=== PATIENT | male | born 1995 | race Two or more races ===

== ENCOUNTER 2018-08-19 03:59 | Emergency (ER) | payer OTHER ==
[~2018-08-19] VITALS: Ht 170.2 cm; Wt 90.7 kg
[2018-08-19 04:02] VITALS: Ht 170.2 cm; Wt 90.7 kg
[2018-08-19 05:24] VITALS: BP 154/87
== END 2018-08-19 05:20 | disposition other institution (70) ==
LOC: ED 03:59
DX: Z02.89 Encounter for other administrative examinations (principal)